=== PATIENT | female | born 1985 | race Two or more races ===

== ENCOUNTER 2017-06-18 00:11 | Emergency (ER) | payer OTHER ==
[~2017-06-18] VITALS: Ht 149.9 cm; Wt 46.7 kg
--- NOTE | 2017-06-18 00:25 | NUR ---
TO BED 9 A 32 YO FEMALE PT BIB FRIEND FROM HOME, PT HAS A LAC ON HER RIGHT FOOT X 2 HOURS. VSS. NAD NOTED. NONDIAPHORETIC. INITIAL WOUND CARE DONE. COMFORT MEASURES RENDERED. AWAITING FOR ER MD JOYCE.
[2017-06-18] MEDS ORDERED: LET SOLN TOPICAL 8 ML UDC TP ONE ×2 (01:16→01:30)
[2017-06-18] MEDS ORDERED: BUPIVACAINE 0.5 % PF 150 MG/30 ML VIAL ONE (01:29)
[2017-06-18] MEDS ORDERED: BUPIVACAINE 0.5 % PF 150 MG/30 ML VIAL IJ ONE (01:30)
--- NOTE | 2017-06-18 02:10 | NUR ---
DR NOVOA AT BEDSIDE TO SUTURE WOUND.
--- NOTE | 2017-06-18 02:40 | NUR ---
Wound dressing clean and intact, no bleeding. Patient discharged to home in stable condition. Written and verbal after care instructions given. Patient verbalizes understanding of instruction. Patient is ambulatory with steady gait, no further complaints.
[2017-06-18 02:57] VITALS: BP 113/68
== END 2017-06-18 02:58 | disposition home or self-care (01) ==
LOC: ER 00:11
DX: S91.311A Laceration without foreign body, right foot, initial encounter (principal); W21.09XA Struck by other hit or thrown ball, initial encounter; Y93.89 Activity, other specified; Y92.89 Other specified places as the place of occurrence of the external cause; Y99.9 Unspecified external cause status
CPT/HCPCS: 73630-TC; A4606; A6402; J3490; Z7610